=== PATIENT | male | born 1970 | race Caucasian/White ===

== ENCOUNTER 2023-01-03 07:18 | Day surgery (SDC) | payer OTHER ==
[~2023-01-03] VITALS: Ht 160 cm; Wt 77.1 kg
[2023-01-03] MEDS ORDERED: LIDOCAINE 2% 100 MG/5 ML UJET TP ONE (08:20)
[2023-01-03] MEDS ORDERED: fentaNYL citrate 0.05 MG/ML VIAL ONE (08:20)
[2023-01-03] MEDS ORDERED: EPINEPHrine PFS 0.1 MG/ML SYR IVP ONE (10:41)
[2023-01-03] MEDS ORDERED: fentaNYL citrate 0.05 MG/ML VIAL IVP ONE (10:50)
== END 2023-01-03 10:53 | disposition home or self-care (01) ==
LOC: MLB 07:18 → MMU 07:19 → MLB 10:53
PROVIDERS: ATTEND Internal Medicine Gastroenterology
DX: Z12.11 Encounter for screening for malignant neoplasm of colon (principal); K63.5 Polyp of colon; I10 Essential (primary) hypertension; E11.9 Type 2 diabetes mellitus without complications; Z79.899 Other long term (current) drug therapy; Z20.822 Contact with and (suspected) exposure to COVID-19
CPT/HCPCS: 45381; 45385; 87426; J0171; J3010